=== PATIENT | male | born 1960 | race Caucasian/White ===

== ENCOUNTER 2018-09-04 09:06 | Day surgery (SDC) | payer BC ==
--- NOTE | 2018-09-04 07:42 | P.GSHP ---
History of Present Illness H&P Date: 09/04/18 Chief Complaint: Bilateral inguinal hernia, umbilical hernia Patient seen in the office in January of this year. At the time the patient was complaining of a bulge in the right groin for the last 10 years or so. Pain radiates to the right testicle. Increasing in size gradually. On examining office however the patient was found have a small reducible umbilical hernia diastases recti and bilateral inguinal hernias right greater than left. Past Medical History Past Medical History: GERD/Reflux, Hypertension, Osteoarthritis (OA), Skin Disorder Additional Past Medical History / Comment(s): SHINGLES WITH NERVE PAIN. PSORIASIS History of Any Multi-Drug Resistant Organisms: None Reported Past Surgical History: Tonsillectomy Additional Past Surgical History / Comment(s): @ 2 WEEKS BILATERAL INGUINAL. COLONSCOPY. Past Anesthesia/Blood Transfusion Reactions: No Reported Reaction Additional Past Anesthesia/Blood Transfusion Reaction / Comment(s): NO FAMILY HISTORY, ADOPTED Past Psychological History: No Psychological Hx Reported Smoking Status: Never smoker Past Alcohol Use History: Rare Past Drug Use History: None Reported - Past Family History Mother Family Medical History: Unable to Obtain Additional Family Medical History / Comment(s): ADOPTED Medications and Allergies Home Medications Medication Instructions Recorded Confirmed Type Acetaminophen [Acetaminophen ER] 650 mg PO BID PRN 09/02/18 09/02/18 History Gabapentin [Neurontin] 300 mg PO BID 09/02/18 09/02/18 History Hydrochlorothiazide 12.5 mg PO QAM 09/02/18 09/02/18 History Ibuprofen [Motrin] 800 mg PO BID PRN 09/02/18 09/02/18 History Lisinopril 20 mg PO BID 09/02/18 09/02/18 History Multivitamins, Thera [Multivitamin 1 tab PO DAILY 09/02/18 09/02/18 History (formulary)] Omeprazole 20 mg PO QAM 09/02/18 09/02/18 History Allergies Allergy/AdvReac Type Severity Reaction Status Date / Time No Known Allergies Allergy Verified 09/02/18 09:29 Surgical - Exam Physical exam: General: Well-developed, well-nourished HEENT: Normocephalic, sclerae nonicteric Abdomen: Nontender, nondistended, bilateral inguinal hernia right greater than left, small reducible umbilical hernia Extremities: No edema Neuro: Alert and oriented Assessment and Plan (1) Bilateral inguinal hernia Narrative/Plan: Will proceed with laparoscopic da Barrera assisted bilateral inguinal hernia repair with mesh and concurrent repair umbilical hernia with possible mesh open. Risks of bleeding, infection, recurrence, bladder and bowel injury, numbness, nerve injury, conversion to an open procedure were discussed with the patient. The patient understands and wishes to proceed. Status: Acute Code(s): K40.20 - BI INGUINAL HERNIA, W/O OBST OR GANGRENE, NOT SPCF RECUR SNOMED Code(s): 49517348
[~2018-09-04 09:06] MED LIST: DEXAMETHASONE SOD PHOSPHATE 10 MG/ML 1 ML VIAL IV ONE; HEPARIN SODIUM,PORCINE 5,000 UNIT/ML 1 ML VIAL SQ ONE; LACTATED RINGERS 1,000 ML IV SCH; LIDOCAINE 1% 20 ML VIAL (10MG/ML) FOR IV START INTRADERMA PRN; SCOPOLAMINE 1.5MG/72HR PATCH TRANSDERM ONE
[2018-09-04] MEDS ORDERED: MIDAZOLAM 2 MG/2 ML VIAL IVP ONE (09:45)
[2018-09-04] MEDS: ceFAZolin IN SWFI 2 GM/20 ML SYRINGE IVP ONE ×2 (09:46→10:12)
[2018-09-04] MEDS ORDERED: BUPIVACAIN-EPI 0.25%-1:200,000 30 ML VIAL SQ ONE ×3 (09:47→10:28)
[2018-09-04] MEDS ORDERED: MIDAZOLAM 2 MG/2 ML VIAL ONE (10:01)
[2018-09-04] MEDS ORDERED: PROPOFOL 10 MG/ML 20 ML VIAL IV ONE (10:01)
[2018-09-04] MEDS ORDERED: NEOSTIGMINE 1 MG/ML 10 ML VIAL ONE (10:01)
[2018-09-04] MEDS ORDERED: LIDOCAINE 1% INJ 10MG/ML (20 ML MDV) ONE (10:01)
[2018-09-04] MEDS ORDERED: LIDOCAINE 1% (PF) 10 MG/ML (30 ML SDV) ONE (10:01)
[2018-09-04] MEDS ORDERED: SUCCINYLCHOLINE CHLORIDE 100 MG/5 ML SYR IV ONE (10:01)
[2018-09-04] MEDS ORDERED: fentaNYL (PF) 50 MCG/ML 2 ML AMP ONE (10:01)
[2018-09-04] MEDS ORDERED: KETOROLAC 30 MG/ML 1 ML VIAL ONE (10:01)
[2018-09-04] MEDS ORDERED: GLYCOPYRROLATE 0.2 MG/ML 2 ML VIAL ONE (10:01)
[2018-09-04] MEDS ORDERED: ROCURONIUM BROMIDE 10 MG/ML 10 ML VIAL IV ONE (10:01)
[2018-09-04] MEDS ORDERED: ROPIVACAINE 5 MG/ML 30 ML VIAL ONE (10:01)
[2018-09-04] MEDS: ONDANSETRON 4 MG/2 ML VIAL IVP ONE ×2 (10:06→12:28)
[2018-09-04] MEDS ORDERED: LACTATED RINGERS 1,000 ML IV ONE (10:49)
[2018-09-04] MEDS ORDERED: TAMSULOSIN 0.4 MG CAP.ER.24H PO STA (12:15)
[2018-09-04] MEDS ORDERED: NALOXONE 0.4 MG/ML 1 ML VIAL IV PRN (12:15)
[2018-09-04] MEDS ORDERED: HYDROcodone/APAP 5-325MG 1 EACH TAB PO PRN (12:15)
--- NOTE | 2018-09-04 12:20 | P.OP ---
Date of Procedure: 09/04/18 Procedure(s) Performed: PREOPERATIVE DIAGNOSIS: Bilateral inguinal hernia, reducible umbilical hernia POSTOPERATIVE DIAGNOSIS: Same PROCEDURE: Laparoscopic repair bilateral inguinal hernia with the da Barrera robot assistance with mesh, open repair umbilical hernia SURGEON: Elissa EBL: Minimal ANESTHESIA: General COMPLICATIONS: None OPERATIVE PROCEDURE: Patient was placed in the operating table in the supine position. The patient was placed under general anesthesia. The abdomen was prepped and draped in usual sterile fashion. A periumbilical incision was made using the scalpel. The subcutaneous tissues were dissected bluntly. The hernia sac was identified. The umbilical attachments to the fascia were divided using electrocautery. The hernia sac was excised. The fascial defect only measured about 1 cm or less. The tissue directly fairly strong. Through this defect the Veress needle was inserted. The saline drop test was normal. Insufflation took place to 15 mmHg. A 5 mm trocar was placed into the peritoneal cavity. This was later switched to a 12 mm trocar. 2 additional 8 mm trochars were placed in the right upper quadrant and left upper quadrant under visualization. The robotic arms were then brought in and docked into place. The fenestrated bipolar was used in the left arm and the laparoscopic michelle was utilized in the right arm. A 30 12 mm scope was used in the up position. The peritoneal cavity was inspected. The patient had evidence of bilateral direct inguinal hernias. The right side was first addressed. The peritoneum was incised in a horizontal fashion cephalad to the internal inguinal ring. Following that careful dissection of the preperitoneal space took place. This took place using both electrocautery, sharp dissection but primarily blunt dissection. Visualization of the pubic tubercle and Stefan's ligament took place medially. Full dissection took place laterally as well. The hernia sac was fully dissected. The left side was then addressed in a similar fashion. Again a moderate sized direct hernia was seen. The right side was larger than the left. We had developed a retro-pubic space connecting both dissections. Once we had adequate space the 15 x 10 progrip mesh was advanced into the preperitoneal space and flattened out appropriately on both sides to cover all potential hernia sites. No sutures were used. The peritoneal defect was then closed bilaterally using a locking 2-0 VLok suture. The redundant preperitoneal fat was incorporated into the medial aspect of the peritoneal closure to help reduce risks of future recurrence. A small defect in the peritoneum on the right side laterally was closed using a figure-of- eight 3-0 Vicryl stitch. The needles were then removed. The pneumoperitoneum was then evacuated. The fascia at the 12 mm site was closed using interrupted [id number] 0 Ethibond sutures. No mesh was utilized at the umbilicus. The skin of all 3 sites was closed using a 4-0 Monocryl stitch. Skin glue was then applied. DISPOSITION: Stable to recovery room
[2018-09-04 12:24] VITALS: TEMP 97
[2018-09-04] MEDS ORDERED: PROMETHAZINE INJ 25 MG/ML 1 ML VIAL IVPB ONE (12:40)
[2018-09-04] MEDS: HYDROmorphone 1 MG/ML 1 ML SYRINGE IVP PRN ×2 (13:00→13:11)
[2018-09-04 13:34] VITALS: RESP 16
[2018-09-04] MEDS ORDERED: HYDROcodone/APAP 5-325MG 1 EACH TAB PO ONE (14:29)
[2018-09-04 14:44] VITALS: BP 117/67; PULSE 60
== END 2018-09-04 15:30 | disposition home or self-care (01) ==
LOC: OR 09:06
PROVIDERS: ATTEND Surgery
DX: K40.20 Bilateral inguinal hernia, without obstruction or gangrene, not specified as recurrent (principal); K42.9 Umbilical hernia without obstruction or gangrene; K21.9 Gastro-esophageal reflux disease without esophagitis; I10 Essential (primary) hypertension; M19.90 Unspecified osteoarthritis, unspecified site; L40.9 Psoriasis, unspecified; Z79.899 Other long term (current) drug therapy
CPT/HCPCS: 49650; 49585; 64488; C1781; J2250; J1644; J1100; J2550; J2710; J2405; J2001 ×2; J3010; J1885; J1170; J2795; J0330; J2704; J0690

== ENCOUNTER → 2021-11-21 | Outpatient (CLI) | payer MEDICAID ==
--- NOTE | 2021-11-21 17:19 | XR ---
EXAMINATION TYPE: XR ribs RT DATE OF EXAM: 11/21/2021 COMPARISON: None available INDICATION: Pain front and back with cough for one week causing blood for 3 days TECHNIQUE: 4 views of the right ribs FINDINGS: Degenerative changes of the glenohumeral articulation. No definite right rib fracture identified. No gross lytic or sclerotic bone lesion. Questionable subtle opacity in the right lower lung zone, for f urther elective standard x-ray of the chest. IMPRESSION: No definite right rib fracture identified. Incidental findings as described above.
== END | disposition home or self-care (01) ==
LOC: RADXRMAIN 11:13
PROVIDERS: ATTEND Family Medicine
DX: R07.82 Intercostal pain (principal)

== ENCOUNTER 2021-11-29 10:35 | Inpatient (IN) | payer MEDICAID ==
[2021-11-29] MEDS ORDERED: HEPARIN SODIUM 1,000 UN/ML (10ML VL) IV ONE (10:54)
[2021-11-29] MEDS ORDERED: HEPARIN SODIUM 1,000 UN/ML (10ML VL) IV PRN (10:54)
--- NOTE | 2021-11-29 10:58 | ED ---
General Adult HPI - General Chief complaint: Chest Pain Stated complaint: DVT Time Seen by Provider: 11/29/21 10:36 Source: patient, RN/MD (Case discussed with Dr. Sally Terry upon patient arrival.), RN notes reviewed Mode of arrival: ambulatory Limitations: no limitations - History of Present Illness Initial comments: Patient is a pleasant 61-year-old male presenting to the emergency Department with abnormal ultrasound. Patient has been having some leg discomfort past few days. Patient had outpatient ultrasound showing DVT. Report reviewed. Patient also states the last couple of weeks he has had some right lower rib discomfort and some shortness of breath. Patient has had mild amount of coughing up blood. Today patient did cough up a larger clot of blood. No history of similar symptoms previously. Patient did drive to [place] in August. - Related Data Home Medications Medication Instructions Recorded Confirmed Omeprazole 20 mg PO DAILY 09/02/18 11/29/21 lisinopriL 20 mg PO BID 09/02/18 11/29/21 Cetirizine HCl [Zyrtec] 10 mg PO DAILY 11/29/21 11/29/21 [place]-3 Fatty Acids/Fish Oil [Fish 2 cap PO DAILY 11/29/21 11/29/21 Oil 1,000 mg Softgel] hydroCHLOROthiazide 25 mg PO DAILY 11/29/21 11/29/21 Allergies Allergy/AdvReac Type Severity Reaction Status Date / Time No Known Allergies Allergy Verified 11/29/21 11:02 Review of Systems ROS Statement: Those systems with pertinent positive or pertinent negative responses have been documented in the HPI. ROS Other: All systems not noted in ROS Statement are negative. Constitutional: Denies: fever Eyes: Denies: eye pain ENT: Denies: ear pain Respiratory: Reports: as per HPI, hemoptysis Cardiovascular: Reports: as per HPI Endocrine: Denies: fatigue Gastrointestinal: Denies: abdominal pain Genitourinary: Denies: dysuria Musculoskeletal: Reports: as per HPI. Denies: back pain Skin: Denies: rash Neurological: Denies: weakness Past Medical History Past Medical History: GERD/Reflux, Hypertension, Osteoarthritis (OA), Skin Disorder Additional Past Medical History / Comment(s): SHINGLES WITH NERVE PAIN. PSORIASIS History of Any Multi-Drug Resistant Organisms: None Reported Past Surgical History: Tonsillectomy Additional Past Surgical History / Comment(s): @ 2 WEEKS BILATERAL INGUINAL. COLONSCOPY. Past Anesthesia/Blood Transfusion Reactions: No Reported Reaction Additional Past Anesthesia/Blood Transfusion Reaction / Comment(s): NO FAMILY HISTORY, ADOPTED Past Psychological History: No Psychological Hx Reported Smoking Status: Never smoker Past Alcohol Use History: Rare Past Drug Use History: None Reported - Past Family History Mother Family Medical History: Unable to Obtain Additional Family Medical History / Comment(s): ADOPTED General Exam Limitations: no limitations General appearance: alert, in no apparent distress Head exam: Present: normocephalic Eye exam: Present: normal appearance Neck exam: Present: normal inspection Respiratory exam: Present: normal lung sounds bilaterally Cardiovascular Exam: Present: regular rate, normal rhythm Expanded Peripheral pulses: 2+: Posterior Tibialis (R), Posterior Tibialis (L) GI/Abdominal exam: Present: soft. Absent: tenderness Extremities exam: Present: calf tenderness (Minimal on the left with some swelling) Neurological exam: Present: alert Psychiatric exam: Present: normal affect, normal mood Skin exam: Present: normal color Course Vital Signs 11/29/21 11/29/21 11/29/21 10:45 10:53 11:40 Temperature 98.6 F 98.3 F Pulse Rate 92 90 Respiratory 18 18 18 Rate Blood Pressure 143/99 125/84 O2 Sat by Pulse 100 99 Oximetry EKG Findings - EKG Comments: EKG Findings:: Sinus rhythm with rate of 87. [place] 175. QRS 92. QT 343. QTC 37. Normal axis. Normal QRS. No acute ST change. Medical Decision Making - Medical Decision Making Case was discussed with Dr. ellis who did evaluate patient and will admit covering for Dr. Terry. - Lab Data Result diagrams: 11/29/21 10:56 11/29/21 10:56 Lab Results 11/29/21 11/29/21 11/29/21 Range/Units 10:56 10:56 10:56 WBC 10.4 (3.8-10.6) k/uL RBC 4.50 (4.30-5.90) m/uL Hgb 14.6 (13.0-17.5) gm/dL Hct 45.1 (39.0-53.0) % MCV 100.2 H (80.0-100.0) fL MCH 32.6 (25.0-35.0) pg MCHC 32.5 (31.0-37.0) g/dL RDW 13.1 (11.5-15.5) % Plt Count 308 (150-450) k/uL MPV 7.4 Neutrophils % 76 % Lymphocytes % 14 % Monocytes % 5 % Eosinophils % 3 % Basophils % 1 % Neutrophils # 7.9 H (1.3-7.7) k/uL Lymphocytes # 1.5 (1.0-4.8) k/uL Monocytes # 0.5 (0-1.0) k/uL Eosinophils # 0.3 (0-0.7) k/uL Basophils # 0.1 (0-0.2) k/uL PT 11.0 (9.0-12.0) sec INR 1.0 (<1.2) APTT 23.3 (22.0-30.0) sec D-Dimer 9.36 H (<0.60) mg/L FEU Sodium 138 (137-145) mmol/L Potassium 3.9 (3.5-5.1) mmol/L Chloride 99 (98-107) mmol/L Carbon Dioxide 30 (22-30) mmol/L Anion Gap 9 mmol/L BUN 26 H (9-20) mg/dL Creatinine 1.41 H (0.66-1.25) mg/dL Est GFR (CKD-EPI)AfAm 62 (>60 ml/min/1.73 sqM) Est GFR (CKD-EPI)NonAf 54 (>60 ml/min/1.73 sqM) Glucose 106 H (74-99) mg/dL Calcium 9.7 (8.4-10.2) mg/dL Total Bilirubin 0.7 (0.2-1.3) mg/dL AST 26 (17-59) U/L ALT 21 (4-49) U/L Alkaline Phosphatase 57 (38-126) U/L Troponin I (0.000-0.034) ng/mL NT-Pro-B Natriuret Pep pg/mL Total Protein 8.3 H (6.3-8.2) g/dL Albumin 4.4 (3.5-5.0) g/dL 11/29/21 11/29/21 Range/Units 10:56 10:56 WBC (3.8-10.6) k/uL RBC (4.30-5.90) m/uL Hgb (13.0-17.5) gm/dL Hct (39.0-53.0) % MCV (80.0-100.0) fL MCH (25.0-35.0) pg MCHC (31.0-37.0) g/dL RDW (11.5-15.5) % Plt Count (150-450) k/uL MPV Neutrophils % % Lymphocytes % % Monocytes % % Eosinophils % % Basophils % % Neutrophils # (1.3-7.7) k/uL Lymphocytes # (1.0-4.8) k/uL Monocytes # (0-1.0) k/uL Eosinophils # (0-0.7) k/uL Basophils # (0-0.2) k/uL PT (9.0-12.0) sec INR (<1.2) APTT (22.0-30.0) sec D-Dimer (<0.60) mg/L FEU Sodium (137-145) mmol/L Potassium (3.5-5.1) mmol/L Chloride (98-107) mmol/L Carbon Dioxide (22-30) mmol/L Anion Gap mmol/L BUN (9-20) mg/dL Creatinine (0.66-1.25) mg/dL Est GFR (CKD-EPI)AfAm (>60 ml/min/1.73 sqM) Est GFR (CKD-EPI)NonAf (>60 ml/min/1.73 sqM) Glucose (74-99) mg/dL Calcium (8.4-10.2) mg/dL Total Bilirubin (0.2-1.3) mg/dL AST (17-59) U/L ALT (4-49) U/L Alkaline Phosphatase (38-126) U/L Troponin I <0.012 (0.000-0.034) ng/mL NT-Pro-B Natriuret Pep 80 pg/mL Total Protein (6.3-8.2) g/dL Albumin (3.5-5.0) g/dL - Radiology Data Radiology results: report reviewed (Ultrasound shows extensive DVT on the left from the external iliac down. Computed tomography scan concerning for right main pulmonary embolism as discussed with radiologist.) Critical Care Time Critical Care Time: Yes Total Critical Care Time: 33 Disposition Clinical Impression: DVT (deep venous thrombosis) Disposition: ADMITTED IP TO THIS HOSP Condition: Serious Is patient prescribed a controlled substance at d/c from ED?: No Referrals: Sally Bowers MD [Primary Care Provider] - 1-2 days Decision Time: 11:44
[2021-11-29 11:17] LABS: Basophils # (A) 0.1 k/uL (0-0.2); Basophils % (A) 1 %; Eosinophils # (A) 0.3 k/uL (0-0.7); Eosinophils % (A) 3 %; HCT 45.1 % (39.0-53.0); HGB 14.6 gm/dL (13.0-17.5); Lymphocytes # (A) 1.5 k/uL (1.0-4.8); Lymphocytes % (A) 14 %; MCH 32.6 pg (25.0-35.0); MCHC 32.5 g/dL (31.0-37.0); MCV 100.2 fL (80.0-100.0); Mean Platelet Volume 7.4; Monocytes # (A) 0.5 k/uL (0-1.0); Monocytes % (A) 5 %; Neutrophils # (A) 7.9 k/uL (1.3-7.7); Neutrophils % (A) 76 %; Platelet Count 308 k/uL (150-450); RDW 13.1 % (11.5-15.5); WBC 10.4 k/uL (3.8-10.6)
[2021-11-29 11:27] LABS: Partial Thromboplastin Time 23.3 sec (22.0-30.0)
[2021-11-29] MEDS: HEPARIN SOD,PORK IN 0.45% NACL 25,000 UNIT in 0.45% NACL 1 250ML.BAG IV SCH (11:36)
[2021-11-29 11:40] LABS: Albumin 4.4 g/dL (3.5-5.0); Calcium 9.7 mg/dL (8.4-10.2); Potassium 3.9 mmol/L (3.5-5.1); Total Bilirubin 0.7 mg/dL (0.2-1.3); Total Protein 8.3 g/dL (6.3-8.2)
[2021-11-29] MEDS ORDERED: NALOXONE 0.4 MG/ML 1 ML VIAL IV PRN (12:41)
[2021-11-29] MEDS ORDERED: ACETAMINOPHEN TAB 325 MG TAB PO PRN (12:41)
--- NOTE | 2021-11-29 12:52 | CT ---
EXAMINATION TYPE: CT angio chest DATE OF EXAM: 11/29/2021 COMPARISON: No previous CT scan is available for comparison HISTORY: Right rib pain and dyspnea CT DLP: 848.9 mGy.cm. Automated Exposure Control for Dose Reduction was Utilized. TECHNIQUE AND CONTRAST: CTA scan of the thorax is performed with IV Contrast, patient injected with 80 mL of Isovue 370, pulm onary embolism protocol. MIP Images are created on CT scanner and reviewed. FINDINGS: Suboptimal CT pulmonary angiogram performed as a CT thoracic aortogram. Still a nonocclusive pulmonar y embolism is seen at the lateral aspect of the right pulmonary artery extending into the right lower lobe pulmonary artery and becomes occlusive in the anterior and lateral segmental arteries. Suspecte d tiny pulmonary emboli in the right upper lobe pulmonary arteries. No definite filling defect is seen within the pulmonary trunk, the left main pulmonary artery and the proximal segmental arteries of the left lung. Distal segmental and subsegmental arteries of the left lung are suboptimally assessed. No evidence of cardiomegaly or gross signs of right cardiac strain. The pulmonary trunk measures up to 3 cm. Bovine aortic arch with scattered mild arterial and coronary atherosclerotic calcifications. Prominent right hilar lymph nodes measuring up to 9.5 mm, attention on follow-up. No pathologically enlarged lymph nodes in the chest. Heterogeneous area with central lucency seen at the anterolateral aspect of the right lower lobe shirley uring up to 4.4 cm, which could represent lung infarction however underlying lesion cannot be exclude d. Similar smaller lesion is seen more inferiorly, pleural-based and measuring up to 16mm. Unremarkab le remainder of the lungs. Patent central airways. No pleural or pericardial effusion. Questionable h epatic steatosis. Degenerative changes of the lower cervical and midthoracic spine. No gross aggressi ve bone lesion. IMPRESSION: Right-sided pulmonary embolism as described above. No gross signs of cardiac strain. The described right lower lobe pleural-based lesions could represent pulmonary infarcts however under lying neoplastic lesion cannot be excluded. Recommend clinical correlation and short-term follow-up C T scan in 6 weeks to ensure complete resolution. Alternatively, PET scan can be considered. Other inc idental findings as described above.
--- NOTE | 2021-11-29 12:52 | P.HPIM ---
History of Present Illness This is a pleasant 61 years old male with past medical history of GERD, hypertension, osteoarthritis. Is patient of Dr. Sally Terry was sent in because of left leg pain Patient presents because of left leg pain and numbness below the knee for the last 3 weeks. Also has been complaining with coughing and hemoptysis for the last 2 weeks He was very short of breath last week but now is better, he still have some dyspnea especially with exertion and right lower anterior chest pain. No other complaints, no dizziness or headache or weakness or numbness. No vomiting or diarrhea. No urinary complaints. No fever. Hemodynamically stable. Labs including CBC, BMP and liver enzymes are unremarkable His creatinine is elevated at 1.4, previous to creatinine were 1.6 on 06/2021 and 1.8 on 04/2021. Also it was 1.3-1.4 prior to that. CTA done on primary report showing possible pulmonary embolism. Patient is already started on heparin drip and emergency room. Review of Systems CONSTITUTIONAL: No fever, no malaise, no fatigue. HEENT: No recent visual problems or hearing problems. Denied any sore throat. CARDIOVASCULAR: No orthopnea, PND, no palpitations, no syncope. PULMONARY: No shortness of breath, no cough, no hemoptysis. GASTROINTESTINAL: No diarrhea, no nausea, no vomiting, no abdominal pain. Normoactive bowel sounds. NEUROLOGICAL: No headaches, no weakness, no numbness. HEMATOLOGICAL: Denies any bleeding or petechiae. GENITOURINARY: Denies any burning micturition, frequency, or urgency. MUSCULOSKELETAL/RHEUMATOLOGICAL: Denies any joint pain, swelling, or any muscle pain. ENDOCRINE: Denies any polyuria or polydipsia. Past Medical History Past Medical History: GERD/Reflux, Hypertension, Osteoarthritis (OA), Skin Disorder Additional Past Medical History / Comment(s): SHINGLES WITH NERVE PAIN. PSORIASIS History of Any Multi-Drug Resistant Organisms: None Reported Past Surgical History: Tonsillectomy Additional Past Surgical History / Comment(s): @ 2 WEEKS BILATERAL INGUINAL. COLONSCOPY. Past Anesthesia/Blood Transfusion Reactions: No Reported Reaction Additional Past Anesthesia/Blood Transfusion Reaction / Comment(s): NO FAMILY HISTORY, ADOPTED Past Psychological History: No Psychological Hx Reported Smoking Status: Never smoker Past Alcohol Use History: Rare Past Drug Use History: None Reported - Past Family History Mother Family Medical History: Unable to Obtain Additional Family Medical History / Comment(s): ADOPTED Medications and Allergies Home Medications Medication Instructions Recorded Confirmed Type Omeprazole 20 mg PO DAILY 09/02/18 11/29/21 History lisinopriL 20 mg PO BID 09/02/18 11/29/21 History Cetirizine HCl [Zyrtec] 10 mg PO DAILY 11/29/21 11/29/21 History [place]-3 Fatty Acids/Fish Oil [Fish 2 cap PO DAILY 11/29/21 11/29/21 History Oil 1,000 mg Softgel] hydroCHLOROthiazide 25 mg PO DAILY 11/29/21 11/29/21 History Allergies Allergy/AdvReac Type Severity Reaction Status Date / Time No Known Allergies Allergy Verified 11/29/21 11:02 Physical Exam Vitals: Vital Signs Temp Pulse Resp BP Pulse Ox 11/29/21 11:40 98.3 F 90 18 125/84 99 11/29/21 10:53 18 11/29/21 10:45 98.6 F 92 18 143/99 100 Intake and Output 11/28/21 11/29/21 11/29/21 22:59 06:59 14:59 Other: Weight 122.47 kg GENERAL: The patient is alert and oriented x3, not in any acute distress. Well developed, well nourished. HEENT: Pupils are round and equally reacting to light. EOMI. No scleral icterus. No conjunctival pallor. Normocephalic, atraumatic. No pharyngeal erythema. No thyromegaly. CARDIOVASCULAR: S1 and S2 present. No murmurs, rubs, or gallops. PULMONARY: Chest is clear to auscultation, no wheezing or crackles. ABDOMEN: Soft, nontender, nondistended, normoactive bowel sounds. No palpable organomegaly. MUSCULOSKELETAL: No joint swelling or deformity. -EXTREMITIES: No cyanosis, clubbing, or pedal edema. Left leg is swollen and warm NEUROLOGICAL: Gross neurological examination did not reveal any focal deficits. SKIN: No rashes. No petechiae Results CBC & Chem 7: 11/29/21 10:56 11/29/21 10:56 Labs: Abnormal Lab Results - Last 24 Hours (Table) 11/29/21 11/29/21 11/29/21 Range/Units 10:56 10:56 10:56 MCV 100.2 H (80.0-100.0) fL Neutrophils # 7.9 H (1.3-7.7) k/uL D-Dimer 9.36 H (<0.60) mg/L FEU BUN 26 H (9-20) mg/dL Creatinine 1.41 H (0.66-1.25) mg/dL Glucose 106 H (74-99) mg/dL Total Protein 8.3 H (6.3-8.2) g/dL Assessment and Plan Assessment: Acute pulmonary embolism Left leg pain rule out left leg DVT Chronic kidney disease stage III Hypertension History of first arthritis History of GERD History of psoriasis, not an active issue Plan: This is a pleasant 7 years old male who presents with possible PE Patient already started on heparin drip Check echocardiogram and venous Doppler. Pulmonary consult Monitor creatinine closely Labs and medication were reviewed.. Continue same treatment. Continue with symptomatic treatment. Resume home medication. Monitor lytes and vitals. DVT and GI prophylaxis. Further recommendations depends on the clinical course of the patient DVT prophylaxis: heparin GI Prophylaxis: Pepcid
--- NOTE | 2021-11-29 14:23 | P.CNPUL ---
History of Present Illness Consult date: 11/29/21 Requesting physician: Sally Bowers Reason for consult: dyspnea, chest pain, hypoxemia, pulmonary embolism, abnormal CXR/CT Chief complaint: Left leg swelling and pain, shortness of breath, chest pain. History of present illness: Pulmonary consult dated 11/29/2021. 61-year-old male, who presents to the emergency department, with apparent abnormal ultrasound, showing a DVT in the left lower extremity. In addition, the patient had a CT angiogram which showed a pulmonary embolism. The patient states that he's been having issues for a couple weeks now. He notes pain in the left leg, and swelling, more than normal. He apparently had a chest x-ray which showed an abnormal spot, and he was treated with some antibiotics by his primary care provider. Because things weren't getting any better, and because he started developing hemoptysis, the patient was sent for evaluation, it was found have a DVT in the left leg, and a pulmonary embolism in the lung. The patient does have a history of hypertension, and chronic kidney disease. He does take omeprazole, lisinopril, Zyrtec, omega-3 acids, and hydrochlorothiazide. In addition, he does have a history of psoriasis. He has had postherpetic neuralgia as well. The patient also has gastroesophageal reflux disease. Currently, the patient is on IV heparin. Room air saturation is 99%. Labs today include a white count of 10.4, hemoglobin 14.6, hematocrit 45.1, and a platelet count of 308,000. PT, INR and PTT are normal. D-dimer is 9.36. Sodium 138, potassium 3.9, chlorides 90, CO2 30, anion gap 9, BUN 26, and creatinine 1.1. Glucose 106. CT angiogram showed a right-sided pulmonary embolism. There is no signs of cardiac strain. The patient's CT angiogram shows a classic Carty's home, in the periphery of the right lung. This suggest pulmonary infarction. Review of Systems REVIEW OF SYSTEMS: CONSTITUTIONAL: [Negative.] NEUROLOGIC: [ Negative.] HEENT: [ Negative.] CARDIAC: Left leg swelling and pain. PULMONARY: Shortness of breath, pleuritic right-sided chest pain. GI: [Negative.] : [Negative.] RHEUMATOLOGIC: [ Negative.] IMMUNOLOGIC: [ Negative.] ENDOCRINE: [Negative. ] DERMATOLOGIC: [Negative.] Past Medical History Past Medical History: GERD/Reflux, Hypertension, Osteoarthritis (OA), Skin Disorder Additional Past Medical History / Comment(s): SHINGLES WITH NERVE PAIN. PSORIASIS History of Any Multi-Drug Resistant Organisms: None Reported Past Surgical History: Tonsillectomy Additional Past Surgical History / Comment(s): @ 2 WEEKS BILATERAL INGUINAL. COLONSCOPY. Past Anesthesia/Blood Transfusion Reactions: No Reported Reaction Additional Past Anesthesia/Blood Transfusion Reaction / Comment(s): NO FAMILY HISTORY, ADOPTED Past Psychological History: No Psychological Hx Reported Smoking Status: Never smoker Past Alcohol Use History: Rare Past Drug Use History: None Reported - Past Family History Mother Family Medical History: Unable to Obtain Additional Family Medical History / Comment(s): ADOPTED Medications and Allergies Home Medications Medication Instructions Recorded Confirmed Type Omeprazole 20 mg PO DAILY 09/02/18 11/29/21 History lisinopriL 20 mg PO BID 09/02/18 11/29/21 History Cetirizine HCl [Zyrtec] 10 mg PO DAILY 11/29/21 11/29/21 History [place]-3 Fatty Acids/Fish Oil [Fish 2 cap PO DAILY 11/29/21 11/29/21 History Oil 1,000 mg Softgel] hydroCHLOROthiazide 25 mg PO DAILY 11/29/21 11/29/21 History Allergies Allergy/AdvReac Type Severity Reaction Status Date / Time No Known Allergies Allergy Verified 11/29/21 11:02 Physical Exam Osteopathic Statement: *. No significant issues noted on an osteopathic structural exam other than those noted in the History and Physical/Consult. Vitals: Vital Signs Temp Pulse Resp BP Pulse Ox 11/29/21 11:40 98.3 F 90 18 125/84 99 11/29/21 10:53 18 11/29/21 10:45 98.6 F 92 18 143/99 100 Intake and Output 11/28/21 11/29/21 11/29/21 22:59 06:59 14:59 Other: Weight 122.47 kg No acute distress, oriented 3. Patient currently not on any supplemental oxygen. HEENT examination is grossly unremarkable. Neck supple. Full range of motion. No adenopathy thyromegaly or neck vein distention. Cardiovascular examination reveals regular rhythm rate. S1-S2 normal. No S3 or S4. No discernible murmur noted. Heart rate 90 bpm. Lungs reveal mostly clear breath sounds. Scattered rhonchi. No wheezes or crackles. Breath sounds equal. Saturations 99% on room air. Abdomen soft bowel sounds are heard. No masses or tenderness. Extremities reveal some edema in the left lower extremity. Skin reveals some areas of psoriasis particularly in the lower extremities. Neurologic examination is brief but nonfocal. Results - Laboratory Findings CBC and BMP: 11/29/21 10:56 11/29/21 10:56 PT/INR, D-dimer PT 11.0 sec (9.0-12.0) 11/29/21 10:56 INR 1.0 (<1.2) 11/29/21 10:56 D-Dimer 9.36 mg/L FEU (<0.60) H 11/29/21 10:56 Abnormal lab findings: Abnormal Labs 11/29/21 11/29/21 11/29/21 10:56 10:56 10:56 MCV 100.2 H Neutrophils # 7.9 H D-Dimer 9.36 H BUN 26 H Creatinine 1.41 H Glucose 106 H Total Protein 8.3 H - Diagnostic Findings Chest x-ray: image reviewed CT scan - chest: image reviewed Assessment and Plan Assessment: Acute unprovoked right-sided pulmonary embolism/pulmonary infarction, with a classic Carty's hump sign. Left lower extremity DVT. History of hypertension. History of gastroesophageal reflux disease. History of psoriasis. Postherpetic neuralgia. Plan: Plan dated 11/29/2021. The patient is currently on IV heparin. The patient could be converted to a factor X a inhibitor tomorrow. In addition, we will order an echocardiogram. The patient's CT angiogram is reviewed. The patient has an area in the periphery of the right lung, consistent with pulmonary infarction, i.e., Carty's hump sign. The patient should be treated for a total of 6 months. Additional recommendations and suggestions are forthcoming. Time with Patient: Greater than 30
[2021-11-29] MEDS: lisinopriL 20 MG TAB PO SCH (21:09)
[2021-11-30] MEDS: traMADol 50 MG TAB PO PRN ×2 (00:07→23:09)
[2021-11-30] MEDS: HEPARIN SOD,PORK IN 0.45% NACL 25,000 UNIT in 0.45% NACL 1 250ML.BAG IV SCH (00:09)
[2021-11-30 07:37] LABS: Basophils # (A) 0.1 k/uL (0-0.2); Basophils % (A) 1 %; Eosinophils # (A) 0.4 k/uL (0-0.7); Eosinophils % (A) 5 %; HCT 38.3 % (39.0-53.0); HGB 12.7 gm/dL (13.0-17.5); Lymphocytes # (A) 1.9 k/uL (1.0-4.8); Lymphocytes % (A) 22 %; MCH 33.1 pg (25.0-35.0); MCHC 33.1 g/dL (31.0-37.0); MCV 100.2 fL (80.0-100.0); Mean Platelet Volume 7.1; Monocytes # (A) 0.4 k/uL (0-1.0); Monocytes % (A) 5 %; Neutrophils # (A) 5.6 k/uL (1.3-7.7); Neutrophils % (A) 66 %; Platelet Count 241 k/uL (150-450); RBC 3.82 m/uL (4.30-5.90); RDW 13.3 % (11.5-15.5); WBC 8.5 k/uL (3.8-10.6)
--- NOTE | 2021-11-30 08:00 | ECHOF ---
Referral Reason:Rule out heart disease MEASUREMENTS -------- HEIGHT: 185.4 cm WEIGHT: 122.5 kg BP: 125/84 RVIDd: 3.1 cm (< 3.3) IVSd: 1.8 cm (0.6 - 1.1) LVIDd: 3.9 cm (3.9 - 5.3) LVPWd: 1.6 cm (0.6 - 1.1) IVSs: 1.9 cm LVIDs: 2.2 cm LVPWs: 1.7 cm LAESV Index (A-L): 29.68 ml/m Ao Diam: 3.3 cm (2.0 - 3.7) AV Cusp: 2.5 cm (1.5 - 2.6) LA Diam: 4.7 cm (2.7 - 3.8) MV EXCURSION: 18.162 mm (> 18.000) MV EF SLOPE: 64 mm/s (70 - 150) EPSS: 0.6 cm MV E Kareem: 0.78 m/s MV DecT: 201 ms MV A Kareem: 0.97 m/s MV E/A Ratio: 0.81 RAP: 5.00 mmHg RVSP: 30.15 mmHg TAPSE: 31.35 mm FINDINGS -------- Sinus rhythm. This was a technically adequate study. The left ventricular size is normal. There is severe concentric left ventricular hypertrophy. Ove rall left ventricular systolic function is normal with, an EF between 55 - 60 %. The right ventricle is normal in size. The right ventricular systolic function is normal. LA is midly dilated 29-33ml/m2. The right atrial size is normal. Interatrial and interventricular septum intact. There is no evidence of aortic regurgitation. There is no evidence of aortic stenosis. Mild mitral regurgitation is present. Mild tricuspid regurgitation present. There is no evidence of pulmonary hypertension. The right v entricular systolic pressure, as measured by Doppler, is 30.15mmHg. There is no pulmonic regurgitation present. The aortic root size is normal. IVC Not well visulized. Echo free space represents a pericardial fat pad. There is no pericardial effusion. CONCLUSIONS -------- 1. The left ventricular size is normal. 2. There is severe concentric left ventricular hypertrophy. 3. Overall left ventricular systolic function is normal with, an EF between 55 - 60 %. 4. LA is midly dilated 29-33ml/m2. 5. Mild mitral regurgitation is present. 6. Mild tricuspid regurgitation present. INTRAOPERATIVE NEURO TECH: Marie Colón RDCS
--- NOTE | 2021-11-30 08:03 | US ---
EXAMINATION TYPE: US venous doppler duplex LE RT DATE OF EXAM: 11/30/2021 7:39 AM COMPARISON: Prev left leg only CLINICAL HISTORY: leg swelling. Leg swelling, known PE and DVT left leg SIDE PERFORMED: Right TECHNIQUE: The lower extremity deep venous system is examined utilizing real time linear array sonog esha with graded compression, doppler sonography and color-flow sonography. VESSELS IMAGED: Common Femoral Vein Deep Femoral Vein Greater Saphenous Vein * Femoral Vein Popliteal Vein Superior Calf Veins (* superficial vessels) Right Leg: Negative for DVT IMPRESSION: Grayscale, color doppler, spectral doppler imaging performed of the deep veins of the [facility] lower extremity. There is normal flow, compressibility, vascular waveforms. No evidence of DVT of the right lower extremity.
[2021-11-30] MEDS ORDERED: NON FORMULARY DRUG (Omega-3 Fatty Acids/Fish Oil [Fish Oil 1,000 Mg Softgel] 1 EACH Capsul PO SCH (09:00)
--- NOTE | 2021-11-30 09:42 | P.PN ---
Subjective Progress Note Date: 11/30/21 Principal diagnosis: Pulmonary infarction Pulmonary consult dated 11/29/2021. 61-year-old male, who presents to the emergency department, with apparent abnormal ultrasound, showing a DVT in the left lower extremity. In addition, the patient had a CT angiogram which showed a pulmonary embolism. The patient states that he's been having issues for a couple weeks now. He notes pain in the left leg, and swelling, more than normal. He apparently had a chest x-ray which showed an abnormal spot, and he was treated with some antibiotics by his primary care provider. Because things weren't getting any better, and because he started developing hemoptysis, the patient was sent for evaluation, it was found have a DVT in the left leg, and a pulmonary embolism in the lung. The patient does have a history of hypertension, and chronic kidney disease. He does take omeprazole, lisinopril, Zyrtec, omega-3 acids, and hydrochlorothiazide. In addition, he does have a history of psoriasis. He has had postherpetic neuralgia as well. The patient also has gastroesophageal reflux disease. Currently, the patient is on IV heparin. Room air saturation is 99%. Labs today include a white count of 10.4, hemoglobin 14.6, hematocrit 45.1, and a platelet count of 308,000. PT, INR and PTT are normal. D-dimer is 9.36. Sodium 138, potassium 3.9, chlorides 90, CO2 30, anion gap 9, BUN 26, and creatinine 1.1. Glucose 106. CT angiogram showed a right-sided pulmonary embolism. There is no signs of cardiac strain. The patient's CT angiogram shows a classic Carty's home, in the periphery of the right lung. This suggest pulmonary infarction. Progress note dated 11/30/2021. 61-year-old male who we saw yesterday in the emergency department. Actually, he still in the emergency department. He was transferred to room 25. He is on IV heparin. He was admitted with a diagnosis of left leg DVT, and right lung pulmonary infarction. The patient is currently slated to be placed on Andreina course. He is on room air. He is on IV heparin. He will see me in the office in a couple weeks. Clinically, he is very stable. White count 8.5, hemoglobin 12.7, hematocrit 33, platelet count is 241,000. PTT is 57.4. Right lower extremity was negative for DVT. Objective - Vital Signs Vital signs: Vital Signs Temp 98.4 F 11/30/21 09:32 Pulse 90 11/30/21 09:32 Resp 18 11/30/21 09:32 BP 124/77 11/30/21 09:32 Pulse Ox 95 11/30/21 09:32 Intake & Output 11/29/21 11/30/21 11/30/21 18:59 06:59 18:59 Intake Total 157.989 115.728 Output Total 650 250 Balance 157.989 -534.272 -250 Weight 122.47 kg Intake: IV 10 Invasive Line 1 10 Intake, IV Titration 157.989 105.728 Amount Heparin Sod,Pork in 0.45% 157.989 105.728 NaCl 25,000 unit In 0.45 % NaCl 1 250ml.bag @ 18 UNITS/KG/HR 22.045 mls/hr IV .[id number] [facility] Rx#: [id number] Output: Urine 650 250 Other: Voiding Method Urinal - Exam No acute distress, oriented 3. Patient currently not on any supplemental oxygen. HEENT examination is grossly unremarkable. Neck supple. Full range of motion. No adenopathy thyromegaly or neck vein distention. Cardiovascular examination reveals regular rhythm rate. S1-S2 normal. No S3 or S4. No discernible murmur noted. Heart rate 90 bpm. Lungs reveal mostly clear breath sounds. Scattered rhonchi. No wheezes or crackles. Breath sounds equal. Saturations 97 % on room air. Abdomen soft bowel sounds are heard. No masses or tenderness. Extremities reveal some edema in the left lower extremity. Skin reveals some areas of psoriasis particularly in the lower extremities. Neurologic examination is brief but nonfocal. - Labs CBC & Chem 7: 11/30/21 07:05 11/29/21 10:56 Labs: Abnormal Lab Results - Last 24 Hours (Table) 11/29/21 11/29/21 11/29/21 Range/Units 10:56 10:56 10:56 RBC (4.30-5.90) m/uL Hgb (13.0-17.5) gm/dL Hct (39.0-53.0) % MCV 100.2 H (80.0-100.0) fL Neutrophils # 7.9 H (1.3-7.7) k/uL APTT (22.0-30.0) sec D-Dimer 9.36 H (<0.60) mg/L FEU BUN 26 H (9-20) mg/dL Creatinine 1.41 H (0.66-1.25) mg/dL Glucose 106 H (74-99) mg/dL Total Protein 8.3 H (6.3-8.2) g/dL 11/29/21 11/30/21 11/30/21 Range/Units 17:41 00:01 07:05 RBC 3.82 L (4.30-5.90) m/uL Hgb 12.7 L (13.0-17.5) gm/dL Hct 38.3 L (39.0-53.0) % MCV 100.2 H (80.0-100.0) fL Neutrophils # (1.3-7.7) k/uL APTT 76.5 H 59.9 H (22.0-30.0) sec D-Dimer (<0.60) mg/L FEU BUN (9-20) mg/dL Creatinine (0.66-1.25) mg/dL Glucose (74-99) mg/dL Total Protein (6.3-8.2) g/dL 11/30/21 Range/Units 07:05 RBC (4.30-5.90) m/uL Hgb (13.0-17.5) gm/dL Hct (39.0-53.0) % MCV (80.0-100.0) fL Neutrophils # (1.3-7.7) k/uL APTT 57.4 H (22.0-30.0) sec D-Dimer (<0.60) mg/L FEU BUN (9-20) mg/dL Creatinine (0.66-1.25) mg/dL Glucose (74-99) mg/dL Total Protein (6.3-8.2) g/dL Assessment and Plan Assessment: Acute unprovoked right-sided pulmonary embolism/pulmonary infarction, with a classic Carty's Hump sign. Left lower extremity DVT. History of hypertension. History of gastroesophageal reflux disease. History of psoriasis. Postherpetic neuralgia. Plan: Plan dated 11/29/2021. The patient is currently on IV heparin. The patient could be converted to a factor X a inhibitor tomorrow. In addition, we will order an echocardiogram. The patient's CT angiogram is reviewed. The patient has an area in the periphery of the right lung, consistent with pulmonary infarction, i.e., Carty's hump sign. The patient should be treated for a total of 6 months. Additional recommendations and suggestions are forthcoming. Plan dated 11/30/2021. The patient's IV heparin can be discontinued in favor of Eliquis. The patient had an unprovoked blood clot, and should be treated for 6 months. The patient will see me in the office in a couple weeks. I explained to the patient, that his right-sided pleuritic chest pain is secondary to pulmonary infarction. The patient did have a left lower extremity DVT. The right lower extremity was negative for DVT. Additional recommendations and suggestions are forthcoming. Time with Patient: Less than 30
[2021-11-30] MEDS: APIXABAN 5 MG TAB PO SCH ×2 (09:47→20:40)
[2021-11-30] MEDS: PANTOPRAZOLE 40 MG TABLET PO SCH (09:47)
[2021-11-30] MEDS: hydroCHLOROthiazide 25 MG TAB PO SCH (09:47)
[2021-11-30] MEDS: LORATADINE 10 MG TAB PO SCH (09:48)
[2021-11-30] MEDS: lisinopriL 20 MG TAB PO SCH ×2 (09:48→20:40)
--- NOTE | 2021-11-30 20:28 | P.PN ---
Subjective This is a pleasant 61 years old male with past medical history of GERD, hypertension, osteoarthritis. Is patient of Dr. Sally Terry was sent in be cause of left leg pain Patient presents because of left leg pain and numbness below the knee for the last 3 weeks. Also has been complaining with coughing and hemoptysis for the last 2 weeks He was very short of breath last week but now is better, he still have some dyspnea especially with exertion and right lower anterior chest pain. No other complaints, no dizziness or headache or weakness or numbness. No vomiting or diarrhea. No urinary complaints. No fever. Hemodynamically stable. Labs including CBC, BMP and liver enzymes are unremarkable His creatinine is elevated at 1.4, previous to creatinine were 1.6 on 06/2021 and 1.8 on 04/2021. Also it was 1.3-1.4 prior to that. CTA done on primary report showing possible pulmonary embolism. Patient is already started on heparin drip and emergency room. 12/10/2021 Patient symptoms significantly improving including his right chest pain, and left pain and swelling after starting on heparin drip. Echocardiogram showed no hard straining, right leg ultrasound and venous Doppler is negative for DVT. Hemoglobin dropped from 14 down to 12, could be hemostatic induration but we will monitor him for another 24 hours Anticoagulation and switched Eliquis 10 mg twice a day 7 days and continue 5 mg thereafter. 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 Objective - Vital Signs Vital signs: Vital Signs Temp 98.4 F 11/30/21 09:32 Pulse 90 11/30/21 09:32 Resp 18 11/30/21 09:32 BP 124/77 11/30/21 09:32 Pulse Ox 95 11/30/21 09:32 Intake & Output 11/29/21 11/30/21 11/30/21 18:59 06:59 18:59 Intake Total 157.989 115.728 Output Total 650 250 Balance 157.989 -534.272 -250 Weight 122.47 kg Intake: IV 10 Invasive Line 1 10 Intake, IV Titration 157.989 105.728 Amount Heparin Sod,Pork in 0.45% 157.989 105.728 NaCl 25,000 unit In 0.45 % NaCl 1 250ml.bag @ 18 UNITS/KG/HR 22.045 mls/hr IV .[id number] [facility] Rx#: [id number] Output: Urine 650 250 Other: Voiding Method Urinal - Exam GENERAL: The patient is alert and oriented x3, not in any acute distress. Well developed, well nourished. HEENT: Pupils are round and equally reacting to light. EOMI. No scleral icterus. No conjunctival pallor. Normocephalic, atraumatic. No pharyngeal erythema. No thyromegaly. CARDIOVASCULAR: S1 and S2 present. No murmurs, rubs, or gallops. PULMONARY: Chest is clear to auscultation, no wheezing or crackles. ABDOMEN: Soft, nontender, nondistended, normoactive bowel sounds. No palpable organomegaly. MUSCULOSKELETAL: No joint swelling or deformity. EXTREMITIES: No cyanosis, clubbing, or pedal edema. NEUROLOGICAL: Gross neurological examination did not reveal any focal deficits. SKIN: No rashes. no petechiae. - Labs CBC & Chem 7: 11/30/21 07:05 11/29/21 10:56 Labs: Abnormal Lab Results - Last 24 Hours (Table) 11/29/21 11/29/21 11/30/21 Range/Units 10:56 17:41 00:01 RBC (4.30-5.90) m/uL Hgb (13.0-17.5) gm/dL Hct (39.0-53.0) % MCV (80.0-100.0) fL APTT 76.5 H 59.9 H (22.0-30.0) sec D-Dimer 9.36 H (<0.60) mg/L FEU 11/30/21 11/30/21 Range/Units 07:05 07:05 RBC 3.82 L (4.30-5.90) m/uL Hgb 12.7 L (13.0-17.5) gm/dL Hct 38.3 L (39.0-53.0) % MCV 100.2 H (80.0-100.0) fL APTT 57.4 H (22.0-30.0) sec D-Dimer (<0.60) mg/L FEU Assessment and Plan Assessment: Acute pulmonary embolism Left leg pain rule out left leg DVT Chronic kidney disease stage III Hypertension History of first arthritis History of GERD History of psoriasis, not an active issue Plan: This is a pleasant 7 years old male who presents with possible PE Continue with the Eliquis 10 mg twice a day Pulmonary consult Monitor hemoglobin in 24 hours Labs and medication were reviewed.. Continue same treatment. Continue with symptomatic treatment. Resume home medication. Monitor lytes and vitals. DVT and GI prophylaxis. Further recommendations depends on the clinical course of the patient DVT prophylaxis: Eliquis GI Prophylaxis: Pepcid
[2021-12-01 07:57] LABS: HCT 36.8 % (39.0-53.0); HGB 11.9 gm/dL (13.0-17.5); MCH 32.3 pg (25.0-35.0); MCHC 32.4 g/dL (31.0-37.0); MCV 99.7 fL (80.0-100.0); Mean Platelet Volume 7.6; Platelet Count 241 k/uL (150-450); RBC 3.69 m/uL (4.30-5.90); RDW 12.8 % (11.5-15.5); WBC 9.7 k/uL (3.8-10.6)
[2021-12-01] MEDS: APIXABAN 5 MG TAB PO SCH (09:09)
[2021-12-01] MEDS: LORATADINE 10 MG TAB PO SCH (09:09)
[2021-12-01] MEDS: lisinopriL 20 MG TAB PO SCH (09:09)
[2021-12-01] MEDS: PANTOPRAZOLE 40 MG TABLET PO SCH (09:09)
[2021-12-01] MEDS: hydroCHLOROthiazide 25 MG TAB PO SCH (09:09)
[2021-12-01 10:07] VITALS: RESP 16
--- NOTE | 2021-12-01 12:27 | P.PN ---
Subjective Progress Note Date: 12/01/21 Principal diagnosis: Pulmonary infarction Pulmonary consult dated 11/29/2021. 61-year-old male, who presents to the emergency department, with apparent abnormal ultrasound, showing a DVT in the left lower extremity. In addition, the patient had a CT angiogram which showed a pulmonary embolism. The patient states that he's been having issues for a couple weeks now. He notes pain in the left leg, and swelling, more than normal. He apparently had a chest x-ray which showed an abnormal spot, and he was treated with some antibiotics by his primary care provider. Because things weren't getting any better, and because he started developing hemoptysis, the patient was sent for evaluation, it was found have a DVT in the left leg, and a pulmonary embolism in the lung. The patient does have a history of hypertension, and chronic kidney disease. He does take omeprazole, lisinopril, Zyrtec, omega-3 acids, and hydrochlorothiazide. In addition, he does have a history of psoriasis. He has had postherpetic neuralgia as well. The patient also has gastroesophageal reflux disease. Currently, the patient is on IV heparin. Room air saturation is 99%. Labs today include a white count of 10.4, hemoglobin 14.6, hematocrit 45.1, and a platelet count of 308,000. PT, INR and PTT are normal. D-dimer is 9.36. Sodium 138, potassium 3.9, chlorides 90, CO2 30, anion gap 9, BUN 26, and creatinine 1.1. Glucose 106. CT angiogram showed a right-sided pulmonary embolism. There is no signs of cardiac strain. The patient's CT angiogram shows a classic Carty's home, in the periphery of the right lung. This suggest pulmonary infarction. Progress note dated 11/30/2021. 61-year-old male who we saw yesterday in the emergency department. Actually, he still in the emergency department. He was transferred to room 25. He is on IV heparin. He was admitted with a diagnosis of left leg DVT, and right lung pulmonary infarction. The patient is currently slated to be placed on Andreina course. He is on room air. He is on IV heparin. He will see me in the office in a couple weeks. Clinically, he is very stable. White count 8.5, hemoglobin 12.7, hematocrit 33, platelet count is 241,000. PTT is 57.4. Right lower extremity was negative for DVT. Progress note dated 12/01/2021. 61-year-old male who was seen in consultation 2 days ago, in the emergency department. The patient is again seen today in room 356. Yesterday, I mentioned the patient could be considered for discharge. Patient was started on a factor X a inhibitor. He was admitted with a diagnosis of pulmonary embolism/pulmonary infarction, and left leg DVT. Currently, the patient is on room air. He is hoping to be discharged home today. He has an appointment to see his primary care physician next week, and he'll be seeing me in a couple weeks. I did mention to him that he will need a repeat computed tomography scan of the chest. Right lower extremity was negative for DVT. Hemoglobin today was 11.9. Hematocrit 36.8. White count 9.7. Platelet count was normal. Objective - Vital Signs Vital signs: Vital Signs Temp 98.5 F 12/01/21 08:00 Pulse 74 12/01/21 08:00 Resp 16 12/01/21 08:00 BP 118/77 12/01/21 08:00 Pulse Ox 95 12/01/21 08:00 Intake & Output 11/30/21 12/01/21 12/01/21 18:59 06:59 18:59 Intake Total 444 Output Total 250 542 Balance -250 -542 444 Weight 122.47 kg Intake: Oral 444 Output: Urine 250 540 Stool 2 Other: Voiding Method Urinal Toilet Toilet # Voids 1 - Exam No acute distress, oriented 3. Patient currently not on any supplemental oxygen. HEENT examination is grossly unremarkable. Neck supple. Full range of motion. No adenopathy thyromegaly or neck vein distention. Cardiovascular examination reveals regular rhythm rate. S1-S2 normal. No S3 or S4. No discernible murmur noted. Heart rate 74 bpm. Lungs reveal mostly clear breath sounds. Scattered rhonchi. No wheezes or crackles. Breath sounds equal. Saturations 95 % on room air. Abdomen soft bowel sounds are heard. No masses or tenderness. Extremities reveal some edema in the left lower extremity. Skin reveals some areas of psoriasis particularly in the lower extremities. Neurologic examination is brief but nonfocal. - Labs CBC & Chem 7: 12/01/21 07:37 11/29/21 10:56 Labs: Abnormal Lab Results - Last 24 Hours (Table) 12/01/21 Range/Units 07:37 RBC 3.69 L (4.30-5.90) m/uL Hgb 11.9 L (13.0-17.5) gm/dL Hct 36.8 L (39.0-53.0) % Assessment and Plan Assessment: Acute unprovoked right-sided pulmonary embolism/pulmonary infarction, with a classic Carty's Hump sign. Left lower extremity DVT. History of hypertension. History of gastroesophageal reflux disease. History of psoriasis. Postherpetic neuralgia. Plan: Plan dated 11/29/2021. The patient is currently on IV heparin. The patient could be converted to a factor X a inhibitor tomorrow. In addition, we will order an echocardiogram. The patient's CT angiogram is reviewed. The patient has an area in the periphery of the right lung, consistent with pulmonary infarction, i.e., Carty's hump sign. The patient should be treated for a total of 6 months. Additional recommendations and suggestions are forthcoming. Plan dated 11/30/2021. The patient's IV heparin can be discontinued in favor of Eliquis. The patient had an unprovoked blood clot, and should be treated for 6 months. The patient will see me in the office in a couple weeks. I explained to the patient, that his right-sided pleuritic chest pain is secondary to pulmonary infarction. The patient did have a left lower extremity DVT. The right lower extremity was negative for DVT. Additional recommendations and suggestions are forthcoming. Plan dated 12/01/2021. Hopefully, the patient will be considered for possible discharge today. He has been converted to a factor X a inhibitor. The patient does have an appointment to see his primary care physician next week. The patient will follow with me in a couple of weeks. I did mention to him that he'll follow computed tomography scan of the chest. He was discovered to have a left lower extremity DVT. Because he has an unprovoked pulmonary embolism, he should be treated for 6 months. Additional recommendations and suggestions are forthcoming. Time with Patient: Less than 30
[2021-12-01 13:04] VITALS: BP 120/72; PULSE 72; TEMP 98.2
--- NOTE | 2021-12-01 20:43 | P.DS ---
Providers Date of admission: 11/29/21 12:44 Attending physician: Michael Cross MD Consults: 11/29/21 12:34 Consult Physician Urgent Consulting Provider: Abdirizak Russo Consult Reason/Comments: possible PE Do you want consulting provider notified?: Yes Primary care physician: Sally Bowers Hospital Course: Diagnoses Acute pulmonary embolism Acute leg DVT Chronic kidney disease stage III Mild anemia Hypertension History of first arthritis History of GERD History of psoriasis, not an active issue Hospital course: This is a pleasant 61 years old male with past medical history of GERD, hypertension, osteoarthritis. Is patient of Dr. Sally Terry was sent in because of left leg pain Patient presents because of left leg pain and coughing and hemoptysis for the last 2 weeks. Also he had pleuritic-like right lower anterior chest pain. CTA of the chest showing pulmonary embolism and he has acute left leg DVT. Patient started on heparin drip, evaluated by egg and spice mixer and Anticoagulation and switched Eliquis 10 mg twice a day 7 days and continue 5 mg thereafter. Co-pay for Eliquis is $10 , patient informed and he agrees. Hemoglobin was 12.7 came down to 11.9, he has no evidence of bleeding, he has actually no stool, no report of black stool. No hypertension or hemodynamic instability. Because of the patient's home dose of Prilosec once daily increased to twice a day with instructions to follow up with his PCP next Sunday to check his hemoglobin, also I called his PCP Dr. Terry and discussed the case with her in details and findings with recommendation to check hemoglobin and she currently took note of these. Today patient is fully awake and oriented, his chest pain and left leg pain significantly improved, no other complaints. No dyspnea. No abdominal pain or change in urine or bowel habits. No fever. Patient was cleared for discharge by pulmonary service. Also importance of adherence to therapy is explained the patient extensively and he verbalized understanding and acceptance Problems and management plan were discussed with the patient and he verbalized understanding and acceptance Patient was found stable and can be discharged home however he needs follow-up as an outpatient. Patient was instructed to follow up with PCP Dr. Sally Terry within one week and patient agrees with the appointments made for her on 12/06 and states he will follow-up Also patient was instructed to follow up with Dr. Russo in 2 weeks and he agrees to call and make his own appointment Physical exam Gen: patient is a AAOx3, no distress CVS: S1-S2, RRR, no murmur Lungs: B/L CTA, no wheezing Abdomen: soft, no distention, no tenderness, positive bowel sounds Extremity: no leg edema or induration Time spent more than 35 minutes Patient Condition at Discharge: Serious Plan - Discharge Summary Discharge Rx Participant: No New Discharge Prescriptions: New Apixaban [Eliquis] 5 mg PO DAILY 30 Days #60 tablet Omeprazole [PriLOSEC] 20 mg PO AC-BID #60 cap Apixaban [Eliquis Starter Pack (for VTE)] 5 - 10 mg PO DIRECTED 30 Days #1 each Continue lisinopriL 20 mg PO BID hydroCHLOROthiazide 25 mg PO DAILY Cetirizine HCl [Zyrtec] 10 mg PO DAILY [place]-3 Fatty Acids/Fish Oil [Fish Oil 1,000 mg Softgel] 2 cap PO DAILY Discontinued Omeprazole 20 mg PO DAILY Discharge Medication List lisinopriL 20 mg PO BID 09/02/18 [History] Apixaban [Eliquis Starter Pack (for VTE)] 5 - 10 mg PO DIRECTED 30 Days #1 each 11/29/21 [Rx] Apixaban [Eliquis] 5 mg PO DAILY 30 Days #60 tablet 11/29/21 [Rx] Cetirizine HCl [Zyrtec] 10 mg PO DAILY 11/29/21 [History] [place]-3 Fatty Acids/Fish Oil [Fish Oil 1,000 mg Softgel] 2 cap PO DAILY 11/29/21 [History] hydroCHLOROthiazide 25 mg PO DAILY 11/29/21 [History] Omeprazole [PriLOSEC] 20 mg PO AC-BID #60 cap 12/01/21 [Rx] Follow up Appointment(s)/Referral(s): Sally Bowers MD [Primary Care Provider] - 12/06/21 1:00 pm (we recommend to check your hemoglobin with your doctor ) Abdirizak Russo DO [Doctor of Osteopathic Medicine] - 2 Weeks Activity/Diet/Wound Care/Special Instructions: Eliquis will be covered with a $10 copay card, coupon will be applied at [facility] and they will give patient the copay card to activate. heart healthy diet activity is restricted till you see your doctor Discharge Disposition: HOME SELF-CARE
== END 2021-12-01 12:56 | disposition home or self-care (01) | DRG 176 ==
LOC: EC 10:35 → 3SCARD 12:44
PROVIDERS: ADMIT Internal Medicine; ATTEND Internal Medicine
DX: I26.99 Other pulmonary embolism without acute cor pulmonale (principal); I82.402 Acute embolism and thrombosis of unspecified deep veins of left lower extremity; B02.29 Other postherpetic nervous system involvement; R04.2 Hemoptysis; N18.30 Chronic kidney disease, stage 3 unspecified; I12.9 Hypertensive chronic kidney disease with stage 1 through stage 4 chronic kidney disease, or unspecified chronic kidney disease; B02.9 Zoster without complications; K21.9 Gastro-esophageal reflux disease without esophagitis; D64.9 Anemia, unspecified; L40.9 Psoriasis, unspecified; M19.90 Unspecified osteoarthritis, unspecified site; R09.02 Hypoxemia; Z79.01 Long term (current) use of anticoagulants; Z79.899 Other long term (current) drug therapy
CPT/HCPCS: 36415; 71275; 80053; 83880; 84484; 85025; 85027; 85379; 85610; 85730; 93005; 93306; 96365; 96366; 99291

== ENCOUNTER → 2021-11-29 | Outpatient (CLI) | payer MEDICAID ==
--- NOTE | 2021-11-29 10:37 | US ---
EXAMINATION TYPE: US venous doppler duplex LE LT DATE OF EXAM: 11/29/2021 10:23 AM COMPARISON: NONE CLINICAL HISTORY: M79.662 PAIN IN LEFT LOWER LEG,R60.0 LOCALIZED EDEMA. Left calf pain and swelling SIDE PERFORMED: Left TECHNIQUE: The lower extremity deep venous system is examined utilizing real time linear array sonog esha with graded compression, doppler sonography and color-flow sonography. VESSELS IMAGED: Common Femoral Vein Deep Femoral Vein Greater Saphenous Vein * Femoral Vein Popliteal Vein Proximal Calf Veins (* superficial vessels) Left Leg: Positive for DVT EIV through proximal calf veins IMPRESSION: Extensive left lower extremity DVT extending from the inferior aspect of the left externa l iliac vein down to the upper calf. A Red level critical message alert has been initiated for Sally Bowers MD via the [employer] System on 11/29/2021 10:34 AM. This message alert has been sent to Sally Bowers MD via the preferences provided by the clinician for the receipt of Radiology Critical Findings. Message ID [id number].
== END | disposition home or self-care (01) ==
LOC: RADUSWWP 09:58
PROVIDERS: ATTEND Family Medicine
DX: I82.402 Acute embolism and thrombosis of unspecified deep veins of left lower extremity (principal)

== ENCOUNTER → 2022-01-23 | Outpatient (CLI) | payer MEDICAID ==
--- NOTE | 2022-01-23 14:35 | US ---
EXAMINATION TYPE: US venous doppler duplex LE LT DATE OF EXAM: 01/23/2022 2:28 PM COMPARISON: US, CT CLINICAL HISTORY: I26.99 PE I82.409 DVT Left. Hx DVT and PE. Patient is on eliquis. SIDE PERFORMED: Left TECHNIQUE: The lower extremity deep venous system is examined utilizing real time linear array sonog esha with graded compression, doppler sonography and color-flow sonography. VESSELS IMAGED: Common Femoral Vein Deep Femoral Vein Greater Saphenous Vein * Femoral Vein Popliteal Vein Small Saphenous Vein * Proximal Calf Veins (* superficial vessels) Left Leg: Internal echoes are seen within the prox-mid femoral vein down through the popliteal and p marcela calf veins. Little to no color flow seen within these segments. Compressions deferred at and near these levels. CFV shows color flow- CFV compresses incompletely. IMPRESSION: Acute DVT as noted above.
--- NOTE | 2022-01-23 14:38 | CT ---
EXAMINATION TYPE: CT angio chest DATE OF EXAM: 01/23/2022 COMPARISON: CT 11/29/2021 HISTORY: f/u PE CT DLP: 552.7 mGycm Automated exposure control for dose reduction was used. CONTRAST: CTA scan of the thorax is performed with IV Contrast, patient injected with 80cc mL of Isovue 370, pu lmonary embolism protocol. MIP images are created and reviewed. 3D reconstructed images are created on an independent workstation and reviewed. FINDINGS: LUNGS: The soft tissue lesion seen in the right lower lobe peripherally measuring approximately 4.4 c m in AP dimension on prior now measures 2.7 cm, diminished in size and may represent the residua from all prior infarct, additional follow-up could BE performed. There is no pleural effusion or pneumoth orax seen. The tracheobronchial tree is patent. AORTA: No additional significant abnormality is seen. MEDIASTINUM: There is satisfactory enhancement of the pulmonary artery and its branches, there is imp rovement in patient's known pulmonary embolism, strand-like filling defect in the right pulmonary art milan persists but is diminished in size as compared to prior. There are no greater than 1 cm hilar or mediastinal lymph nodes. No pericardial effusion is seen. OTHER: No additional significant abnormality is seen. IMPRESSION: THERE IS IMPROVEMENT, PERSISTENT CHANGES OF PULMONARY EMBOLUS NOTED DESCRIBED
== END | disposition home or self-care (01) ==
LOC: RADCTMAIN 12:47
PROVIDERS: ATTEND Internal Medicine Critical Care Medicine
DX: I26.99 Other pulmonary embolism without acute cor pulmonale (principal); I82.409 Acute embolism and thrombosis of unspecified deep veins of unspecified lower extremity
CPT/HCPCS: 82565; 84520; 93971; 71275; 36415; Q9967

== ENCOUNTER 2022-03-04 20:14 | Emergency (ER) | payer MEDICAID ==
[2022-03-04 20:18] VITALS: BP 141/87; PULSE 106; RESP 19; TEMP 98
--- NOTE | 2022-03-04 20:51 | CT ---
EXAMINATION TYPE: CT brain wo con DATE OF EXAM: 03/04/2022 COMPARISON: None HISTORY: Head injury, no LOC, on thinners CT DLP: 1094.4 mGycm Automated exposure control for dose reduction was used. Ventricles have normal size. There is no mass effect or midline shift. No sign of intracranial hemorr jose. There is normal aeration of the mastoid sinuses. Calvarium is intact. IMPRESSION: Negative unenhanced head CT scan.
--- NOTE | 2022-03-04 21:07 | ED ---
Head Injury HPI - General Chief complaint: Head Injury Stated complaint: Head injury on thinners Time Seen by Provider: 03/04/22 20:40 Source: patient Mode of arrival: ambulatory - History of Present Illness Initial comments: Deangelo is a 61 yo M who takes Eliquis daily. 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 He had no loss of consciousness. He has no headache or vision changes. Patient states he was told by his doctor that because he is on blood thinners anytime he has had, had several CAT scans ER. - Related Data Home Medications Medication Instructions Recorded Confirmed lisinopriL 20 mg PO BID 09/02/18 11/29/21 Cetirizine HCl [Zyrtec] 10 mg PO DAILY 11/29/21 11/29/21 [place]-3 Fatty Acids/Fish Oil [Fish 2 cap PO DAILY 11/29/21 11/29/21 Oil 1,000 mg Softgel] hydroCHLOROthiazide 25 mg PO DAILY 11/29/21 11/29/21 Previous Rx's Medication Instructions Recorded Apixaban [Eliquis Starter Pack 5 - 10 mg PO DIRECTED 30 Days 11/29/21 (for VTE)] #1 each Apixaban [Eliquis] 5 mg PO DAILY 30 Days #60 tablet 11/29/21 Omeprazole [PriLOSEC] 20 mg PO AC-BID #60 cap 12/01/21 Allergies/Adverse reactions: Allergies Allergy/AdvReac Type Severity Reaction Status Date / Time No Known Allergies Allergy Verified 03/04/22 20:18 Review of Systems ROS Statement: Those systems with pertinent positive or pertinent negative responses have been documented in the HPI. ROS Other: All systems not noted in ROS Statement are negative. Past Medical History Past Medical History: Deep Vein Thrombosis (DVT), GERD/Reflux, Hypertension, Osteoarthritis (OA), Pulmonary Embolus (PE), Renal Disease, Skin Disorder Additional Past Medical History / Comment(s): "Borderline" kidney disease/monitoring, post herpetic neuralgia R side trunk, psoriasis, DVT, PE History of Any Multi-Drug Resistant Organisms: None Reported Past Surgical History: Hernia Repair, Tonsillectomy Additional Past Surgical History / Comment(s): Colonoscopy, bilateral inguinal hernia repairs/umbilical hernia repair. Past Anesthesia/Blood Transfusion Reactions: Unable to Obtain Additional Past Anesthesia/Blood Transfusion Reaction / Comment(s): NO FAMILY H ISTORY, ADOPTED Past Psychological History: No Psychological Hx Reported Smoking Status: Never smoker Past Alcohol Use History: None Reported Past Drug Use History: None Reported - Past Family History Mother Family Medical History: Unable to Obtain Additional Family Medical History / Comment(s): ADOPTED Father Family Medical History: Unable to Obtain Additional Family Medical History / Comment(s): Pt adopted. General Exam - General Exam Comments Initial Comments: Physical Exam GENERAL: Patient is well-developed and well-nourished. Patient is nontoxic and well-hydrated and is in no distress. HENT: Normocephalic Small hematoma crown of the head, no lacerations or bleeding EYES: PERRL, EOMI PULMONARY: Unlabored respirations. CARDIOVASCULAR: Warm and well perfused extremities ABDOMEN: Non-distended SKIN: No rashes or bruising : Deferred NEUROLOGIC: Alert and oriented Normal speech Normal gait MUSCULOSKELETAL: Moving all extremities with no apparent injury PSYCHIATRIC: No SI/HI Course Vital Signs 03/04/22 20:15 Temperature 98 F Pulse Rate 106 H Respiratory 19 Rate Blood Pressure 141/87 O2 Sat by Pulse 97 Oximetry Medical Decision Making - Medical Decision Making CT was obtained and is negative for any acute intracranial process, patient was discharged home with supportive care Disposition Clinical Impression: Closed head injury Disposition: HOME SELF-CARE Condition: Stable Instructions (If sedation given, give patient instructions): Concussion (ED) Is patient prescribed a controlled substance at d/c from ED?: No Referrals: Sally Bowers MD [Primary Care Provider] - 1-2 days
== END 2022-03-04 21:49 | disposition home or self-care (01) ==
LOC: EC 20:14
DX: S00.83XA Contusion of other part of head, initial encounter (principal); I10 Essential (primary) hypertension; K21.9 Gastro-esophageal reflux disease without esophagitis; M19.90 Unspecified osteoarthritis, unspecified site; Z86.711 Personal history of pulmonary embolism; Z86.718 Personal history of other venous thrombosis and embolism; Z79.01 Long term (current) use of anticoagulants; Z79.899 Other long term (current) drug therapy; W22.8XXA Striking against or struck by other objects, initial encounter
CPT/HCPCS: 70450; 99283

== ENCOUNTER → 2022-06-21 | Outpatient (CLI) | payer MEDICAID ==
--- NOTE | 2022-06-21 14:32 | CT ---
CT CHEST FOR PULMONARY EMBOLISM. EXAMINATION TYPE: CT angio chest DATE OF EXAM: 06/21/2022 INDICATION: Pulmonary embolism CT DLP: 592.7 mGycm, Automated exposure control for dose reduction was used. CONTRAST: Patient injected with 70, wasted 26 ml mL of Isovue 370. COMPARISON: 01/23/2022, 11/29/2021 TECHNIQUE: CT of the chest is performed on a spiral scan at 2 mm thick sections. Study is performed with intravenous contrast timed for evaluation for pulmonary embolism. This will limit additional po rtions of the evaluation. 3-D MIP images reconstructed by the technologist are reviewed on the compu ter in the coronal and sagittal planes. FINDINGS: No persistent filling defects are evident to suggest an acute pulmonary embolism. Prior right pulmona ry artery thrombus not clearly identified on the current examination. No mediastinal or hilar adenopathy enlarged by CT criteria is evident. The ascending aorta diameter at the level of the main pulmonary artery is cm. The main pulmonary artery diameter at the bifurcati on is cm. There is a 1.0 cm nodule within the periphery of the right mid to lower lung field. Series 5 image 63 , this is smaller than comparison. Limited CT section through the upper abdomen are unremarkable. IMPRESSIONS: 1. Prior pulmonary embolism not evident on the current examination. 2. Nodule within the periphery of the right lung has continued diminished size, currently measuring 1 .0 cm.
== END | disposition home or self-care (01) ==
LOC: RADCTMAIN 12:14
PROVIDERS: ATTEND Internal Medicine Critical Care Medicine
DX: I26.99 Other pulmonary embolism without acute cor pulmonale (principal)
CPT/HCPCS: 82565; 84520; 71275; 36415; Q9967